=== PATIENT | female | born 1995 | race Caucasian/White ===

== ENCOUNTER 2021-05-06 06:52 | Outpatient (CLI) | payer OTHER | END 2021-05-06 15:00 | disposition home or self-care (01) | LOC: LAB 06:52 | PROVIDERS: ATTEND Internal Medicine Endocrinology, Diabetes & Metabolism | DX: Z03.818 Encounter for observation for suspected exposure to other biological agents ruled out (principal) ==

== ENCOUNTER 2021-05-26 06:53 | Outpatient (CLI) | payer OTHER | END 2021-05-26 18:00 | disposition home or self-care (01) | LOC: LAB 06:53 | PROVIDERS: ATTEND Internal Medicine Endocrinology, Diabetes & Metabolism | DX: Z03.818 Encounter for observation for suspected exposure to other biological agents ruled out (principal) ==